=== PATIENT | female | born 1975 | race Caucasian/White ===

== ENCOUNTER 2018-09-14 15:53 | Emergency (ER) | payer OTHER ==
[2018-09-14] MEDS ORDERED: LORazepam 0.5 MG Tab PO ONE (15:54)
[2018-09-14] MEDS ORDERED: LORazepam 2 MG/ML Syringe IVPUSH ONE ×2 (16:22→16:59)
[2018-09-14] MEDS ORDERED: Sodium Chloride 0.9% 1,000 ML IV ONE (16:23)
[2018-09-14 16:55] LABS: CHLORIDE,CL 102 mEq/L (98-106); SODIUM,NA 138 mEq/L (136-145)
[2018-09-14] MEDS ORDERED: Pantoprazole 40 MG Vial IVPUSH ONE (17:27)
[2018-09-14] MEDS ORDERED: Take Home: LORazepam 0.5 MG Tab, 2 Tab Pack PO ONE (17:33)
--- NOTE | 2018-09-14 17:40 | EDM.PDOC ---
ED HPI GENERAL MEDICAL PROBLEM - General Chief Complaint: General Stated Complaint: trouble breathing Time Seen by Provider: 09/14/18 16:09 Source of Information: Reports: Patient History Limitations: Reports: No Limitations - History of Present Illness INITIAL COMMENTS - FREE TEXT/NARRATIVE: Juliette is a 42 year old female who presents to the ED with c/o trouble breathing and feeling like throat is closing. She reports symptoms started around 8 am and seem to be worsening throughout the day. 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 Has been unable to sleep today. She denies any significant stress currently. Does report she has been more anxious lately since she has been having thyroid issues. Reports she initially had hyperthyroidism and more recently hypothyroidism. Is currently taking Synthroid and is wondering if something with her thyroid is causing these issues. Does also reports she has had issues in past with heart burn. Denies any currently. She reports 7/10 discomfort with current symptoms. Is very anxious, shaky, and appears in mild distress. Denies any chest pain, N/V/D, abdominal pain, urinary symptoms, cough, fever, chills, malaise. Onset: Today Onset Date: 09/14/18 Onset Time: 08:00 Duration: Getting Worse Location: Reports: Chest, Other (Throat) Improves with: Reports: None Worsens with: Reports: None Associated Symptoms: Reports: Shortness of Breath. Denies: Confusion, Chest Pain, Cough, cough w sputum, Diaphoresis, Fever/Chills, Headaches, Loss of Appetite, Malaise, Nausea/Vomiting, Rash, Seizure, Syncope, Weakness - Related Data Allergies Allergy/AdvReac Type Severity Reaction Status Date / Time morphine Allergy Difficulty Verified 09/14/18 16:03 Breathing Home Meds: Home Meds Acetaminophen/Caffeine [Excedrin Tension Headache Cplt] 1 tab PO BID PRN [History] Cetirizine HCl [Zyrtec] 10 mg PO DAILY 09/14/18 [History] Cholecalciferol (Vitamin D3) [Vitamin D3] 4,000 units PO DAILY 09/14/18 [History ] LORazepam 0.5 - 1 mg PO Q4H PRN #15 tablet 09/14/18 [Rx] Levonorgestrel-Ethin Estradiol [Levonest-28 Tablet] 1 tab PO DAILY 09/14/18 [ History] Levothyroxine [Synthroid] 50 mcg PO DAILY 09/14/18 [History] Past Medical History 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 ED EXAM, GENERAL - Physical Exam Exam: See Below Exam Limited By: No Limitations General Appearance: Alert, WD/WN, Anxious, Mild Distress Eye Exam: Bilateral Eye: Normal Fundi, Normal Inspection, PERRL Ears: Normal External Exam, Normal Canal, Hearing Grossly Normal, Normal TMs Nose: Normal Inspection, Normal Mucosa, No Blood Throat/Mouth: Normal Inspection, Normal Lips, Normal Teeth, Normal Gums, Normal Oropharynx, Normal Voice, No Airway Compromise Head: Atraumatic, Normocephalic Neck: Normal Inspection, Supple, Non-Tender, Full Range of Motion Respiratory/Chest: No Respiratory Distress, Lungs Clear, Normal Breath Sounds, No Accessory Muscle Use, Chest Non-Tender Cardiovascular: Normal Peripheral Pulses, Regular Rate, Rhythm, No Edema, No Gallop, No JVD, No Murmur, No Rub GI/Abdominal: Normal Bowel Sounds, Soft, Non-Tender, No Organomegaly, No Distention, No Abnormal Bruit, No Mass Back Exam: Normal Inspection, Full Range of Motion, NT Extremities: Normal Inspection, Normal Range of Motion, Non-Tender, Normal Capillary Refill, No Pedal Edema Neurological: Alert, Oriented, CN II-XII Intact, Normal Cognition, Normal Gait, Normal Reflexes, No Motor/Sensory Deficits Psychiatric: Anxious, Tearful Skin Exam: Warm, Dry, Intact, Normal Color, No Rash Lymphatic: No Adenopathy Course - Vital Signs Last Recorded V/S: Last Vital Signs Temp 97.8 F 09/14/18 16:35 Pulse 69 09/14/18 16:53 Resp 20 09/14/18 16:35 BP 136/86 09/14/18 17:36 Pulse Ox 99 09/14/18 16:53 - Orders/Labs/Meds Labs: Laboratory Tests 09/14/18 09/14/18 09/14/18 Range/Units 16:04 16:04 16:04 WBC 9.7 (5.0-10.0) 10^3/uL RBC 4.82 (4.00-5.50) 10^6/uL Hgb 14.8 (12.0-16.0) g/dL Hct 42.9 (37.0-47.0) % MCV 89.0 (82.0-94.0) fL MCH 30.7 (27.0-32.0) pg MCHC 34.5 (33.0-38.0) g/dL RDW Coeff of Slade 12.7 (11.0-15.0) % Plt Count 245 (150-400) 10^3/uL Add Manual Diff Yes Neutrophils % (Manual) 46 (35-85) % Band Neutrophils % 1 (0-5) % Lymphocytes % (Manual) 29 (21-55) % Monocytes % (Manual) 11 (2-12) % Eosinophils % (Manual) 13 H (0-5) % D-Dimer, Quantitative 0.44 (0.00-0.50) Sodium 138 (136-145) mEq/L Potassium 3.8 (3.5-5.0) mEq/L Chloride 102 (98-106) mEq/L Carbon Dioxide 23 (21-32) mmol/L BUN 9 (7-18) mg/dL Creatinine 0.9 (0.6-1.0) mg/dL Est Cr Clr Drug Dosing 82.98 mL/min Estimated GFR (MDRD) > 60 (>=60) mL/min Glucose 132 H D (75-99) mg/dL Calcium 9.4 (8.4-10.1) mg/dL Total Bilirubin 0.4 (0.0-1.0) mg/dL AST 17 (15-37) U/L ALT 25 (12-78) U/L Alkaline Phosphatase 51 (46-116) U/L Lactate Dehydrogenase 150 (100-190) U/L Creatine Kinase 242 H (21-215) U/L Troponin I < 0.017 (0.00-0.06) ng/mL C-Reactive Protein 0.5 (0.2-0.8) mg/dL Total Protein 7.8 (6.4-8.2) g/dL Albumin 4.0 (3.4-5.0) g/dL Free T4 1.1 (0.8-1.6) ng/dL TSH, Ultra Sensitive 5.92 H (0.36-5.60) uIU/mL Meds: Medications Discontinued Medications Generic Name Dose Route Start Last Admin Trade Name Freq PRN Reason Stop Dose Admin Sodium Chloride 1,000 mls @ 999 mls/hr 09/14/18 16:23 09/14/18 16:28 Normal Saline IV 09/14/18 17:23 999 mls/hr .BOLUS ONE Administration Lorazepam 0.5 mg 09/14/18 16:22 09/14/18 16:29 Ativan IVPUSH 09/14/18 16:23 0.5 mg ONETIME ONE Administration Lorazepam 0.5 mg 09/14/18 16:59 09/14/18 17:02 Ativan IVPUSH 09/14/18 17:00 0.5 mg ONETIME ONE Administration Lorazepam 3 packet 09/14/18 17:33 09/14/18 17:42 Take Home: Lorazepam 0.5 Mg, 2 Tab Pack PO 09/14/18 17:34 3 packet ONETIME ONE Administration Pantoprazole Sodium 40 mg 09/14/18 17:27 09/14/18 17:30 Protonix Iv IVPUSH 09/14/18 17:28 40 mg ONETIME ONE Administration - Re-Assessments/Exams Free Text/Narrative Re-Assessment/Exam: 09/14/18 17:34 Discussed lab & EKG results with patient. Labs all stable. Discussed differential diagnoses with patient. Symptoms have improved significantly with IV ativan. Patient received 2 doses of 0.5 mg lorazepam IV. Appears much more calm. VSS. BP normalized. Departure - Departure Time of Disposition: 17:35 Disposition: Home, Self-Care 01 Condition: Good Clinical Impression: Panic anxiety syndrome GERD (gastroesophageal reflux disease) Qualifiers: Esophagitis presence: esophagitis presence not specified Qualified Code(s): K21.9 - Gastro-esophageal reflux disease without esophagitis - Discharge Information *PRESCRIPTION DRUG MONITORING PROGRAM REVIEWED*: Not Applicable *COPY OF PRESCRIPTION DRUG MONITORING REPORT IN PATIENT FIDEL: Not Applicable Prescriptions: LORazepam 0.5 - 1 mg PO Q4H PRN #15 tablet PRN Reason: Anxiety Instructions: Food Choices for Gastroesophageal Reflux Disease, Adult, Panic Attack, [id number] Referrals: Betzy Juarez PAAlainaC [Primary Care Provider] - Forms: ED Department Discharge Additional Instructions: - Labs all stable - Discussed differentials to include Panic Anxiety Syndrome vs. GERD - Lorazepam 0.5-1 mg PO every 4 hrs as needed - Also trial course of Prilosec or Nexium daily to see if this helps - Recommend f/u with PCP Betzy GARCIA for recheck and to further discuss symptoms - Assessment/Plan Plan: Patient was given total of 1 mg IV ativan and 1 L NS during stay. Patient much more calm and less shaky following Ativan. VS stabilized. Labs all stable. EKG NSR. Patient discharged home. Is advised to use oral ativan as needed at home. Recommend follow up with PCP for recheck.
== END 2018-09-14 17:54 | disposition home or self-care (01) ==
LOC: CC.ED 15:53
DX: K21.9 Gastro-esophageal reflux disease without esophagitis (principal); F41.0 Panic disorder [episodic paroxysmal anxiety]; E03.9 Hypothyroidism, unspecified; Z88.5 Allergy status to narcotic agent; Z79.899 Other long term (current) drug therapy
CPT/HCPCS: 36415; 80053; 82550; 83615; 84439; 84443; 84484; 85025; 85379; 86140; 93005; 96361; 96374; 96375; 96376; 99284; A9270; C9113; J2060; J7030

== ENCOUNTER 2018-10-27 00:20 | Emergency (ER) | payer BC ==
--- NOTE | 2018-10-27 01:07 | EDM.PDOC ---
ED HPI GENERAL MEDICAL PROBLEM - General Chief Complaint: ENT Problem Stated Complaint: "throat swelling" Time Seen by Provider: 10/27/18 00:56 Source of Information: Reports: Patient History Limitations: Reports: No Limitations - History of Present Illness INITIAL COMMENTS - FREE TEXT/NARRATIVE: Juliette is a 42 year old female who presents to the ED with c/o "throat swelling. " She reports she feels like the right side of her throat is swelling and closing up. She reports she has been struggling with anxiety and questionable GERD since about May. Reports she took an Ativan and a Nexium at home, but her throat continues to feel this way, prompting ED visit. She reports around 8 pm she ate 2 slices of pizza and had a pop. Reports she then laid down for sleep and about 1030 pm her symptoms started. She reports the medications she took didn't seem to help. She denies any chest pain, shortness of breath, N/V/D , fever, chills, sore throat, abdominal pain. She reports she has been struggling with anxiety since about May, when she first started having thyroid issues. Did see endocrinology and was thought to have had an episode of viral thyroiditis. She was hyperthyroid at that time. She has now been hypothyroid and is taking Synthroid. She feels her thyroid issues potentiated her anxiety issues. She was recently started on Prozac. She has been taking this for ~ 12 days. She also uses Ativan as needed for her anxiety. She was seem in ED about 1 month ago with same complaint. Was started on Nexium at that time. She has been taking this twice daily as directed by her PCP. She did have recent esophagram, which was negative. She feels she was more anxious at that time and that this feels different as it is one sided. She appears anxious and tearful at time of presentation. Onset: Today Onset Date: 10/26/18 Onset Time: 22:30 Duration: Constant Location: Reports: Other (right side of throat) Associated Symptoms: Reports: Other (anxiety). 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: Other Medication(s) (Ativan and Nexium) - Related Data Allergies Allergy/AdvReac Type Severity Reaction Status Date / Time morphine Allergy Difficulty Verified 10/27/18 00:21 Breathing Home Meds: Home Meds Acetaminophen/Caffeine [Excedrin Tension Headache Cplt] 1 tab PO BID PRN [History] Cholecalciferol (Vitamin D3) [Vitamin D3] 4,000 units PO DAILY 09/14/18 [History ] LORazepam 0.5 - 1 mg PO Q4H PRN #15 tablet 09/14/18 [Rx] Levonorgestrel-Ethin Estradiol [Levonest-28 Tablet] 1 tab PO DAILY 09/14/18 [ History] Levothyroxine [Synthroid] 75 mcg PO DAILY 09/14/18 [History] Esomeprazole Magnesium [Nexium 24Hr] 20 mg PO BID 10/27/18 [History] FLUoxetine [PROzac] 20 mg PO DAILY 10/27/18 [History] Montelukast [Singulair] 10 mg PO DAILY 10/27/18 [History] Past Medical History Cardiovascular History: Reports: High Cholesterol Gastrointestinal History: Reports: GERD Genitourinary History: Reports: None 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 Neurological History: Reports: Headaches, Chronic Psychiatric History: Reports: Anxiety, Depression, Panic Attack Endocrine/Metabolic History: Reports: Hypothyroidism - Infectious Disease History Infectious Disease History: Reports: MRSA, Other (See Below) Other Infectious Disease History: Cleared MRSA X 3 11/20/15 - Past Surgical History Cardiovascular Surgical History: Reports: None GI Surgical History: Reports: Hernia Repair/Other Female Surgical History: Reports: Oophorectomy, Other (See Below) Other Female Surgeries/Procedures: right ovary removed Endocrine Surgical History: Reports: None Neurological Surgical History: Reports: None Social & Family History - Family History Family Medical History: Noncontributory - Tobacco Use Smoking Status *Q: Never Smoker - Caffeine Use Caffeine Use: Reports: Coffee - Recreational Drug Use Recreational Drug Use: No ED ROS ENT - Review of Systems Review Of Systems: ROS reveals no pertinent complaints other than HPI. ED EXAM, ENT - Physical Exam Exam: See Below Exam Limited By: No Limitations General Appearance: Alert, WD/WN, No Apparent Distress, Anxious Eye Exam: Bilateral Eye: EOMI, Normal Fundi, Normal Inspection, PERRL Ears: Normal External Exam, Normal Canal, Hearing Grossly Normal, Normal TMs Nose: Normal Inspection, Normal Mucousa, No Blood Mouth/Throat: Normal Inspection, Normal Gums, Normal Lips, Normal Oropharynx, Normal Teeth. No: Drooling, Dry Mucous Membrane, Hoarse Voice, Oral Ulcers, Peritonsillar Mass, Pharyngeal Erythema, Throat Swelling, Tonsillar Erythema, Tonsillar Exudates, Tonsillar Swelling, Uvular Deviation, Uvular Edema Head: Atraumatic, Normocephalic Neck: Normal Inspection, Supple, Non-Tender, Full Range of Motion. No: Thyromegaly Respiratory/Chest: No Respiratory Distress, Lungs Clear, Normal Breath Sounds, No Accessory Muscle Use, Chest Non-Tender Cardiovascular: Normal Peripheral Pulses, Regular Rate, Rhythm, No Edema, No Gallop, No JVD, No Murmur, No Rub GI/Abdominal: Normal Bowel Sounds, Soft, Non-Tender, No Organomegaly, No Distention, No Abnormal Bruit, No Mass Extremities: Normal Inspection, Normal Range of Motion, Non-Tender, No Pedal Edema, Normal Capillary Refill Neurological: Alert, Oriented, CN II-XII Intact, Normal Cognition, Normal Gait, Normal Reflexes, No Motor/Sensory Deficits Psychiatric: Anxious, Tearful (slightly) Skin: Warm, Dry, Intact, Normal Color, No Rash Lymphatic: No Adenopathy Course - Vital Signs Last Recorded V/S: Last Vital Signs Temp 97.1 F 10/27/18 00:24 Pulse 67 10/27/18 00:24 Resp 18 10/27/18 00:24 BP 132/88 10/27/18 01:29 Pulse Ox 100 10/27/18 00:24 - Orders/Labs/Meds Meds: Medications Discontinued Medications Generic Name Dose Route Start Last Admin Trade Name Freq PRN Reason Stop Dose Admin Al Hydroxide/Mg Hydroxide 30 ml 10/27/18 01:18 10/27/18 01:22 Mag-Al Plus PO 10/27/18 01:19 30 ml ONETIME ONE Administration Lorazepam 0.5 mg 10/27/18 01:19 10/27/18 01:21 Ativan PO 10/27/18 01:20 0.5 mg ONETIME ONE Administration - Re-Assessments/Exams Free Text/Narrative Re-Assessment/Exam: 09/17/19 01:19 Long discussion had with patient re: GERD vs. anxiety. I do feel patients symptoms are likely anxiety related. Exam is benign. Reassured patient that she had recent lab workup, her lungs are clear, and throat appear patent. She did have complete lab workup 4 days ago. Also had recent negative esophagram ~ 3 weeks ago. Patient was recently started on Zoloft. Has been on this the past 12 days. Discussed with patient that it can take 4-6 weeks for this to be effective for her anxiety. Discussed options for treatment of current symptoms. Will try Maalox, as well as another 0.5 mg Ativan. Patient did take 0.5 mg Ativan at home 2 hours ago. Patient did report some improvement after Maalox. Will discharge home and have her follow up with her PCP. Departure - Departure Time of Disposition: 01:28 Disposition: Home, Self-Care 01 Condition: Good Clinical Impression: Panic anxiety syndrome GERD (gastroesophageal reflux disease) Qualifiers: Esophagitis presence: esophagitis presence not specified Qualified Code(s): K21.9 - Gastro-esophageal reflux disease without esophagitis - Discharge Information *PRESCRIPTION DRUG MONITORING PROGRAM REVIEWED*: Not Applicable *COPY OF PRESCRIPTION DRUG MONITORING REPORT IN PATIENT FIDEL: Not Applicable Instructions: Food Choices for Gastroesophageal Reflux Disease, Adult, Easy-to- Read Referrals: Betzy Juarez PA-C [Primary Care Provider] - Forms: ED Department Discharge Additional Instructions: - Recommend continuing Nexium as previously prescribed - Recommend continuing Zoloft and Ativan as previously prescribed - GERD dietary recommendations - May use Maalox of Mylanta as needed for reflux/swallowing issues - If symptoms persist or swallowing difficulties recur, discussed possibility of proceeding with EGD to evaluate for esophagitis or spontaneous reflux. Recommend further discussing this with PCP. - Follow up with PCP for recheck if symptoms worsen or do not improve - Return to ED for emergent needs
[2018-10-27] MEDS: LORazepam 0.5 MG Tab PO ONE (01:21)
[2018-10-27] MEDS: Aluminum Hydroxide/Magnesium Hydroxide/Simethicone Susp 30 ML Cup PO ONE (01:22)
== END 2018-10-27 01:34 | disposition home or self-care (01) ==
LOC: CC.ED 00:20
DX: K21.9 Gastro-esophageal reflux disease without esophagitis (principal); F41.0 Panic disorder [episodic paroxysmal anxiety]; E78.00 Pure hypercholesterolemia, unspecified; F32.9 Major depressive disorder, single episode, unspecified; E03.9 Hypothyroidism, unspecified; Z88.5 Allergy status to narcotic agent; Z79.899 Other long term (current) drug therapy
CPT/HCPCS: 99283; A9270

== ENCOUNTER → 2018-11-06 | Day surgery (SDC) | payer BC ==
[~2018-11-06] MED LIST: Lactated Ringers 1,000 ML IV SCH; Propofol 200 MG/20 ML SDV IV ONE
--- NOTE | 2018-11-06 11:23 | OR ---
DATE OF OPERATION: 11/06/2018 PREOPERATIVE DIAGNOSIS: GLOBUS SENSATION AND DYSPHAGIA. POSTOPERATIVE DIAGNOSIS: MODERATE HIATAL HERNIA WITH GASTROESOPHAGEAL REFLUX DISEASE. SURGEON: Avel Alfredo MD PROCEDURE: EGD WITH ANA. ANESTHESIA: MAC. COMPLICATIONS: None. SPECIMEN: Antral ANA. FINDINGS: 1. Full-length EGD. 2. No signs of peptic ulcer disease. 3. [id number] sized hiatal hernia with spontaneous GERD. 4. No distal esophagitis, stricturing, or Hays's changes. RECOMMENDATIONS: Appropriate GERD treatment and follow up with Betzy Juarez for ongoing cares. INDICATIONS: The patient has been having ongoing issues with globus sensation, occasional GERD, and she definitely has anxiety. Betzy Juarez sent her for diagnostic EGD. DESCRIPTION OF PROCEDURE: The patient was prepped and draped, placed in the left lateral decubitus position. A lubricated Olympus gastroscope was inserted over bite-block, advanced to the cricopharyngeus area and with patient swallow, easily intubated in the esophagus. The esophageal lining was benign in its entire course. The Z-line was crisp and sharp at 36 cm. There was a mild-to- moderate sized hiatal hernia present with spontaneous reflux. No signs of distal esophagitis, stricturing, ulceration, or Hays's changes. The scope was easily advanced into the stomach, through the pylorus, and into the 2nd portion of the duodenum. This and the duodenal bulb were benign. The scope was brought back into the stomach and retroflexed. The upper fundus and cardia were unremarkable other than the hernia which is easily seen from below. Upon straightening, the rest of the fundus and antrum appeared benign. CLOtest was obtained. Air was suctioned, scope removed without complication. RIGO/DANTE /[id number]
== END ==
LOC: CC.SDS 07:39
PROVIDERS: ATTEND Family Medicine
DX: K21.9 Gastro-esophageal reflux disease without esophagitis (principal); K44.9 Diaphragmatic hernia without obstruction or gangrene; F41.9 Anxiety disorder, unspecified
CPT/HCPCS: 36415; 43239; 84703; 87081; J2704; J7120

== ENCOUNTER 2020-08-05 22:43 | Emergency (ER) | payer BC ==
[2020-08-05] MEDS ORDERED: Pantoprazole 40 MG Vial IVPUSH ONE (22:52)
[2020-08-05] MEDS ORDERED: Lactated Ringers 1,000 ML IV ONE (22:53)
[2020-08-05] MEDS ORDERED: Ondansetron 4 MG/2 ML SDV IVPUSH ONE (23:09)
--- NOTE | 2020-08-05 23:16 | EDM.PDOC ---
ED HPI GENERAL MEDICAL PROBLEM - General Chief Complaint: Abdominal Pain Stated Complaint: abdominal pain, nausea Time Seen by Provider: 08/05/20 22:55 Source of Information: Reports: Patient History Limitations: Reports: No Limitations - History of Present Illness INITIAL COMMENTS - FREE TEXT/NARRATIVE: Juliette is a 44 year old female who presents to the ER with complaints of a bdominal burning and bloating. Had a diarrhea stool this am, vomited 3 times today and now states there is burning in the midepigastric area. States the pain radiates through to her back. Had one small mucous stool this evening like when she had c diff in the past. Has not been on any recent meds. No hematochezia or melena. Is taking her Protonix daily. Has been using supplements for energy but has been doing that for some time now. Had chicken strips earlier today, not sure if that "made it worse but thought my stomach was upset because I was hungry". No fevers. Onset: Today, Gradual Duration: Hour(s):, Getting Worse Location: Reports: Abdomen Quality: Reports: Ache, Burning Severity: Moderate Improves with: Reports: None Associated Symptoms: Reports: Malaise, Nausea/Vomiting. Denies: Chest Pain, Cough, Fever/Chills, Headaches, Loss of Appetite, Shortness of Breath Treatments DOWEL MAKER: Reports: Other (see below) Other Treatments DOWEL MAKER: has not taken anything for same Abdominal Pain Score (Numeric/FACES): 5 - Related Data Allergies Allergy/AdvReac Type Severity Reaction Status Date / Time morphine Allergy Difficulty Verified 08/05/20 22:44 Breathing Home Meds: Home Meds Cholecalciferol (Vitamin D3) [Vitamin D3] 4,000 units PO DAILY 09/14/18 [History] LORazepam 0.5 - 1 mg PO Q4H PRN #15 tablet 09/14/18 [Rx] Levonorgestrel/Ethin.estradiol [Levonest-28 Tablet] 1 tab PO DAILY 09/14/18 [History] Levothyroxine [Synthroid] 75 mcg PO DAILY 09/14/18 [History] FLUoxetine [PROzac] 20 mg PO DAILY 10/27/18 [History] Montelukast [Singulair] 10 mg PO DAILY 10/27/18 [History] Pantoprazole Sodium [Protonix] 40 mg PO DAILY 08/05/20 [History] Past Medical History Cardiovascular History: Reports: High Cholesterol Gastrointestinal History: Reports: GERD Genitourinary History: Reports: None MANAGER TECHNOLOGY History: Reports: Other (See Below) Other MANAGER TECHNOLOGY History: right ovary removed Neurological History: Reports: Headaches, Chronic Psychiatric History: Reports: Anxiety, Depression, Panic Attack Endocrine/Metabolic History: Reports: Hypothyroidism - Infectious Disease History Infectious Disease History: Reports: MRSA, Other (See Below) Other Infectious Disease History: Cleared MRSA X 3 11/20/15 - Past Surgical History Cardiovascular Surgical History: Reports: None GI Surgical History: Reports: Hernia Repair/Other Female Surgical History: Reports: Oophorectomy, Other (See Below) Other Female Surgeries/Procedures: right ovary removed Endocrine Surgical History: Reports: None Neurological Surgical History: Reports: None Social & Family History - Family History Family Medical History: No Pertinent Family History - Tobacco Use Tobacco Use Status *Q: Former Tobacco User - Caffeine Use Caffeine Use: Reports: Coffee ED ROS GENERAL - Review of Systems Review Of Systems: See Below Constitutional: Reports: Malaise. Denies: Fever, Chills, Weakness, Fatigue, Decreased Appetite HEENT: Denies: Ear Pain, Rhinitis, Sinus Problem, Throat Pain, Vertigo Respiratory: Denies: Shortness of Breath, Cough Cardiovascular: Denies: Chest Pain, Edema, Lightheadedness Endocrine: Denies: Fatigue GI/Abdominal: Reports: Abdominal Pain, Nausea. Denies: Vomiting : Reports: No Symptoms Musculoskeletal: Reports: No Symptoms Skin: Reports: No Symptoms Neurological: Reports: No Symptoms ED EXAM, GI/ABD - Physical Exam Exam: See Below Exam Limited By: No Limitations General Appearance: Alert, WD/WN, No Apparent Distress Ears: Normal External Exam, Normal TMs Nose: Normal Inspection, Normal Mucosa, No Blood Throat/Mouth: Normal Inspection, Normal Oropharynx Head: Normocephalic Neck: Normal Inspection, Supple, Non-Tender Respiratory/Chest: No Respiratory Distress, Lungs Clear, Normal Breath Sounds Cardiovascular: Regular Rate, Rhythm Extremities: Normal Inspection, No Pedal Edema Neurological: Alert, Oriented Skin Exam: Warm, Dry Course - Vital Signs Last Recorded V/S: Last Vital Signs Temp 97.6 F 08/05/20 22:52 Pulse 85 08/05/20 22:52 Resp 16 08/05/20 22:52 BP 141/83 H 08/05/20 23:31 Pulse Ox 98 08/05/20 22:52 - Orders/Labs/Meds Orders: Active Orders 24 hr Category Date Time Status Lactated Ringers [Ringers, Lactated] 1,000 ml Med 08/05/20 22:53 Active IV .BOLUS Sucralfate [Carafate] Med 08/05/20 23:24 Ordered 1 gm PO QIDACANDBED Medication Orders Lactated Ringer's (Ringers, Lactated) 1,000 mls @ 999 mls/hr IV .BOLUS ONE Stop: 08/05/20 23:53 Last Admin: 08/05/20 23:14 Dose: 999 mls/hr Documented by: KVNG Sucralfate (Sucralfate 1 Gm Tab) 1 gm PO QIDACANDBED [facility] Labs: Laboratory Tests 08/05/20 08/05/20 08/05/20 Range/Units 22:50 23:00 23:00 WBC 13.5 H (4.0-11.0) 10^3/uL RBC 4.98 (4.00-5.50) x10^6/uL Hgb 14.5 (12.0-16.0) g/dL Hct 42.8 (37.0-47.0) % MCV 85.9 (83.0-97.0) fL MCH 29.1 (27.0-32.0) pg MCHC 33.9 (32.0-36.0) g/dL RDW Coeff of Slade 12.2 (11.0-15.0) % Plt Count 305 (150-400) 10^3/uL Immature Gran % (Auto) 0.1 (0.0-4.9) % Neut % (Auto) 82.7 H (41-71) % Lymph % (Auto) 7.5 L (24-44) % [place] % (Auto) 6.6 (0-10) % Eos % (Auto) 2.9 (0-6) % Baso % (Auto) 0.2 (0-1) % Neut # (Auto) 11.18 H (1.80-8.00) x10^3/uL Lymph # (Auto) 1.02 (0.60-5.00) 10^3/uL [place] # (Auto) 0.90 (0.00-1.50) 10^3/uL Eos # (Auto) 0.39 (0.00-1.50) 10^3/uL Baso # (Auto) 0.03 (0.00-0.50) 10^3/uL Immature Gran # (Auto) 0.02 (0.00-0.49) 10^3/uL Sodium 138 (136-145) mEq/L Potassium 3.5 (3.5-5.0) mEq/L Chloride 99 (98-106) mEq/L Carbon Dioxide 24 (21-32) mmol/L BUN 14 (7-18) mg/dL Creatinine 1.1 H (0.6-1.0) mg/dL Est Cr Clr Drug Dosing 66.52 mL/min Estimated GFR (MDRD) 54 L (>=60) mL/min Glucose 108 H (75-99) mg/dL Calcium 8.5 (8.4-10.1) mg/dL C-Reactive Protein 1.3 H (0.2-0.8) mg/dL Amylase 30 (25-115) U/L Lipase 45 L (73-393) U/L Urine Color Yellow (YELLOW) Urine Appearance Clear (CLEAR) Urine pH 5.5 (4.5-8.0) Ur Specific Ro[place] 1.025 H (1.003-1.020) Urine Protein Negative (NEGATIVE) mg/dL Urine Glucose (UA) Negative (NEGATIVE) mg/dL Urine Ketones Trace H (NEGATIVE) mg/dL Urine Occult Blood Negative (NEGATIVE) Urine Nitrite Negative (NEGATIVE) Urine Bilirubin Negative (NEGATIVE) Urine Urobilinogen 0.2 (0.2-1.0) EU/dL Ur Leukocyte Esterase Negative (NEGATIVE) Urine RBC Not seen (0-5) /HPF Urine WBC Not seen (0-5) /HPF Ur Epithelial Cells Few H (NOT SEEN) /HPF Meds: Medications Generic Name Dose Route Start Last Admin Trade Name Freq PRN Reason Stop Dose Admin Lactated Ringer's 1,000 mls @ 999 mls/hr 08/05/20 22:53 08/05/20 23:14 Ringers, Lactated IV 08/05/20 23:53 999 mls/hr .BOLUS ONE Administration Sucralfate 1 gm 08/05/20 23:24 Sucralfate 1 Gm Tab PO QIDACANDBED FIDE Discontinued Medications Generic Name Dose Route Start Last Admin Trade Name Bertrand PRN Reason Stop Dose Admin Ondansetron HCl 4 mg 08/05/20 23:09 08/05/20 23:17 Ondansetron 4 Mg/2 Ml Sdv IVPUSH 08/05/20 23:10 4 mg NOW ONE Administration Ondansetron HCl 2 packet 08/05/20 23:24 Take Home: Ondansetron 4 Mg Tab.Dis, 2 Tab Pack PO 08/05/20 23:25 ONETIME ONE Pantoprazole Sodium 40 mg 08/05/20 22:52 08/05/20 23:10 Pantoprazole 40 Mg Vial IVPUSH 08/05/20 22:53 40 mg ONETIME ONE Administration - Re-Assessments/Exams Free Text/Narrative Re-Assessment/Exam: 08/05/20 23:17 Labs show mild elevation of WBC but CRP is only 1. Other labs unremarkable. IV fluids due to vomiting given. IV Protonix and Zofran given. 08/05/20 23:19 Offered GI cocktail but declined. Departure - Departure Time of Disposition: 23:35 Disposition: Home, Self-Care 01 Condition: Good Clinical Impression: Gastritis - Discharge Information *PRESCRIPTION DRUG MONITORING PROGRAM REVIEWED*: No *COPY OF PRESCRIPTION DRUG MONITORING REPORT IN PATIENT FIDEL: No Instructions: Gastritis, Adult, [id number] Forms: ED Department Discharge Additional Instructions: 1. Push fluids 2. Soft diet 3. If mucous in stools or diarrhea persists, will need to obtain stool studies 4. Zofran 4 mg every 6 hours as needed for nausea 5. Carafate 1 gram before meals and bedtime for 2 weeks 6. Continue Protonix 7. Follow up with Betzy Juarez if symptoms persist Sepsis Event Note (ED) - Evaluation Sepsis Screening Result: No Definite Risk - Focused Exam Vital Signs: Vital Signs Temp Pulse Resp BP BP Pulse Ox 08/05/20 23:31 141/83 H 08/05/20 22:52 97.6 F 85 16 148/90 H 98 - My Orders Last 24 Hours: My Active Orders 08/05/20 22:53 Lactated Ringers [Ringers, Lactated] 1,000 ml IV .BOLUS 08/05/20 23:24 Sucralfate [Carafate] 1 gm PO QIDACANDBED - Assessment/Plan Last 24 Hours: My Active Orders 08/05/20 22:53 Lactated Ringers [Ringers, Lactated] 1,000 ml IV .BOLUS 08/05/20 23:24 Sucralfate [Carafate] 1 gm PO QIDACANDBED
[2020-08-05] MEDS ORDERED: Sucralfate 1 GM Tab PO SCH (23:24)
[2020-08-05] MEDS ORDERED: Take Home: Ondansetron 4 MG Tab.DIS, 2 Tab Pack PO ONE (23:24)
[2020-08-05] MEDS ORDERED: Ondansetron 4 MG Tab.DIS ONE (23:28)
== END 2020-08-06 00:20 | disposition home or self-care (01) ==
LOC: CC.ED 22:43
DX: K29.70 Gastritis, unspecified, without bleeding (principal); D72.829 Elevated white blood cell count, unspecified; K21.9 Gastro-esophageal reflux disease without esophagitis; E03.9 Hypothyroidism, unspecified; Z87.891 Personal history of nicotine dependence; Z88.5 Allergy status to narcotic agent; Z79.899 Other long term (current) drug therapy
CPT/HCPCS: 36415; 80048; 81001; 82150; 83690; 85025; 86140; 96374; 96375; 99284; A9270; C9113; J2405; J7120

== ENCOUNTER 2020-11-14 21:40 | Emergency (ER) | payer BC ==
--- NOTE | 2020-11-14 22:34 | EDM.PDOC ---
ED HPI GENERAL MEDICAL PROBLEM - General Chief Complaint: General Stated Complaint: WOOD Time Seen by Provider: 11/14/20 21:55 Source of Information: Reports: Patient History Limitations: Reports: No Limitations - History of Present Illness INITIAL COMMENTS - FREE TEXT/NARRATIVE: Juliette is a 45 year old female who presents to ER with complaints of "the worse headache I have ever had in my life". States has been having many headaches per week, did see neurology yesterday. Was told she need to stop taking so many of the medications for these headaches as was likely causing rebound headaches. Advised to no longer take these meds unless could not get by without them and was started on Propranolol. has had the headache all day today. Did take ibuprofen earlier and took a nap from 5p-9p but still had headache when she awoke. Admits to nausea but no vomiting. No neurological changes. Denies double or blurred vision. 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 Headache Pain Score (Numeric/FACES): 10 - Related Data Allergies Allergy/AdvReac Type Severity Reaction Status Date / Time morphine Allergy Difficulty Verified 11/14/20 21:57 Breathing Home Meds: Home Meds Cholecalciferol (Vitamin D3) [Vitamin D3] 4,000 units PO DAILY 09/14/18 [History] LORazepam 0.5 - 1 mg PO Q4H PRN #15 tablet 09/14/18 [Rx] Levonorgestrel/Ethin.estradiol [Levonest-28 Tablet] 1 tab PO DAILY 09/14/18 [History] Levothyroxine [Synthroid] 75 mcg PO DAILY 09/14/18 [History] FLUoxetine [PROzac] 20 mg PO DAILY 10/27/18 [History] Montelukast [Singulair] 10 mg PO DAILY 10/27/18 [History] Pantoprazole Sodium [Protonix] 40 mg PO DAILY 08/05/20 [History] Propranolol [Inderal] 40 mg PO BID 11/14/20 [History] Past Medical History Cardiovascular History: Reports: High Cholesterol Gastrointestinal History: Reports: GERD, Hiatal Hernia Genitourinary History: Reports: None GAS ATTENDANT History: Reports: Other (See Below) Other GAS ATTENDANT History: right ovary removed Neurological History: Reports: Headaches, Chronic, Migraines Psychiatric History: Reports: Anxiety, Depression, Panic Attack Endocrine/Metabolic History: Reports: Hypothyroidism - Infectious Disease History Infectious Disease History: Reports: MRSA, Other (See Below) Other Infectious Disease History: Cleared MRSA X 3 11/20/15 - Past Surgical History Cardiovascular Surgical History: Reports: None GI Surgical History: Reports: Hernia Repair/Other Female Surgical History: Reports: Oophorectomy, Other (See Below) Other Female Surgeries/Procedures: right ovary removed Endocrine Surgical History: Reports: None Neurological Surgical History: Reports: None Social & Family History - Family History Family Medical History: No Pertinent Family History - Tobacco Use Tobacco Use Status *Q: Never Tobacco User Second Hand Smoke Exposure: No - Caffeine Use Caffeine Use: Reports: Coffee ED ROS GENERAL - Review of Systems Review Of Systems: See Below Constitutional: Denies: Fever, Chills, Malaise, Weakness, Fatigue, Decreased Appetite HEENT: Denies: Rhinitis, Sinus Problem, Throat Pain, Vertigo Respiratory: Denies: Shortness of Breath, Cough Cardiovascular: Denies: Chest Pain Endocrine: Denies: Fatigue GI/Abdominal: Reports: Nausea. Denies: Abdominal Pain, Vomiting : Reports: No Symptoms Musculoskeletal: Denies: Neck Pain Skin: Reports: No Symptoms Neurological: Reports: Headache. Denies: Numbness, Tingling, Gait Disturbance Psychiatric: Reports: No Symptoms ED EXAM, GENERAL - Physical Exam Exam: See Below Exam Limited By: No Limitations General Appearance: Alert, WD/WN, No Apparent Distress Eye Exam: Bilateral Eye: EOMI, PERRL Ears: Normal External Exam, Normal TMs Nose: Normal Inspection, Normal Mucosa, No Blood Throat/Mouth: Normal Inspection, Normal Oropharynx Head: Normocephalic Neck: Normal Inspection, Supple, Non-Tender Respiratory/Chest: No Respiratory Distress, Lungs Clear, Normal Breath Sounds Cardiovascular: Regular Rate, Rhythm Neurological: Alert, Oriented, CN II-XII Intact, Normal Cognition, Normal Gait, Normal Reflexes, No Motor/Sensory Deficits Skin Exam: Warm, Dry Course - Vital Signs Last Recorded V/S: Last Vital Signs Temp 98 F 11/14/20 21:47 Pulse 54 L 11/14/20 21:47 Resp 18 11/14/20 21:47 BP 177/76 H 11/14/20 21:47 Pulse Ox 100 11/14/20 21:47 - Orders/Labs/Meds Orders: Active Orders 24 hr Category Date Time Status Head wo Cont [CT] Stat Exams 11/14/20 21:42 Taken - Re-Assessments/Exams Free Text/Narrative Re-Assessment/Exam: 11/14/20 22:54 CT scan is negative. Discussed with patient. Departure - Departure Time of Disposition: 22:58 Disposition: Home, Self-Care 01 Condition: Good Clinical Impression: Migraine - Discharge Information *PRESCRIPTION DRUG MONITORING PROGRAM REVIEWED*: No *COPY OF PRESCRIPTION DRUG MONITORING REPORT IN PATIENT FIDEL: No Instructions: Chronic Migraine Headache Forms: ED Department Discharge Additional Instructions: 1. Push fluids 2. Limited tylenol or ibuprofen for headache, follow neurologist recommendations 3. Continue Propranolol 4. Follow up if persisting concerns or contact neurologist for further recommendations. Sepsis Event Note (ED) - Evaluation Sepsis Screening Result: No Definite Risk - Focused Exam Vital Signs: Vital Signs Temp Pulse Resp BP Pulse Ox 11/14/20 21:47 98 F 54 L 18 177/76 H 100 - My Orders Last 24 Hours: My Active Orders 11/14/20 21:42 Head wo Cont [CT] Stat - Assessment/Plan Last 24 Hours: My Active Orders 11/14/20 21:42 Head wo Cont [CT] Stat
[2020-11-14] MEDS: Ketorolac 60 MG/2 ML SDV IM ONE (23:15)
[2020-11-14] MEDS: Ketorolac 60 MG/2 ML SDV ONE (23:57)
== END 2020-11-14 23:00 | disposition home or self-care (01) ==
LOC: CC.ED 21:40
DX: G43.909 Migraine, unspecified, not intractable, without status migrainosus (principal); E03.9 Hypothyroidism, unspecified; Z88.5 Allergy status to narcotic agent; Z79.899 Other long term (current) drug therapy
CPT/HCPCS: 70450; 96372; 99283-25; J1885

== ENCOUNTER 2021-11-26 21:49 | Emergency (ER) | payer BC ==
[2021-11-26] MEDS ORDERED: Sodium Chloride 0.9% 1,000 ML IV ONE (21:55)
[2021-11-26] MEDS ORDERED: Ondansetron 4 MG/2 ML SDV IVPUSH ONE (21:55)
[2021-11-26] MEDS ORDERED: Ketorolac 30 MG/ML SDV IVPUSH ONE (21:55)
[2021-11-26] MEDS ORDERED: diphenhydrAMINE 50 MG/ML SDV IVPUSH ONE (21:55)
== END 2021-11-26 22:58 | disposition home or self-care (01) ==
LOC: CC.ED 21:49
DX: G43.909 Migraine, unspecified, not intractable, without status migrainosus (principal); K21.9 Gastro-esophageal reflux disease without esophagitis; Z88.6 Allergy status to analgesic agent; Z79.899 Other long term (current) drug therapy
CPT/HCPCS: 96361; 96374; 96375; 99283; 99284; J1200; J1885; J2405; J7030

== ENCOUNTER 2023-02-02 15:04 | Emergency (ER) | payer BC ==
[2023-02-02] MEDS ORDERED: Take Home: predniSONE 20 MG, 2 Tab Pack PO ONE (15:44)
== END 2023-02-02 16:01 | disposition home or self-care (01) ==
LOC: CC.ED 15:04
DX: J10.1 Influenza due to other identified influenza virus with other respiratory manifestations (principal); K21.9 Gastro-esophageal reflux disease without esophagitis; Z88.5 Allergy status to narcotic agent; Z79.899 Other long term (current) drug therapy
CPT/HCPCS: 87804; 99283; 99284; J7512; U0002

== ENCOUNTER 2023-12-14 14:02 | Emergency (ER) | payer BC ==
[2023-12-14] MEDS: Ondansetron 4 MG/2 ML SDV IVPUSH STA (14:43)
[2023-12-14] MEDS: fentaNYL 50 MCG/ML SDV IVPUSH ONE (14:43)
[2023-12-14] MEDS: Dexamethasone 10 MG/ML SDV IVPUSH ONE (14:53)
[2023-12-14] MEDS: SUMAtriptan 6 MG/0.5 ML SDV SUBCUT ONE (15:56)
[2023-12-14] MEDS: Amitriptyline 25 MG Tab PO ONE (16:02)
== END 2023-12-14 16:27 | disposition home or self-care (01) ==
LOC: CC.ED 14:02
DX: G43.909 Migraine, unspecified, not intractable, without status migrainosus (principal); K21.9 Gastro-esophageal reflux disease without esophagitis; Z79.899 Other long term (current) drug therapy; Z88.5 Allergy status to narcotic agent
CPT/HCPCS: 70450; 96372; 96374; 96375; 99283; 99283-25; A9270-GY; J1100; J2405; J3010; J3030